=== PATIENT | female | born 1985 | race American Indian/Alaskan Native ===

== ENCOUNTER 2016-10-17 18:58 | Emergency (ER) | payer MEDICARE, OTHER ==
[2016-10-17 19:32] VITALS: BMI 33.9
[2016-10-17 19:35] VITALS: TEMP 98.8; O2SAT 98
--- NOTE | 2016-10-17 20:18 | ED PDOC ---
Arrival/HPI - General Chief Complaint: Female Genitourinary Time Seen by Provider: 10/17/16 19:40 Historian: Patient - History of Present Illness Narrative History of Present Illness (Text): 10/17/16 20:15 30yr old female presents today with concerns for . pt states that she has always had regular periods and now she is 14 days late on her period. pt is concerned that she is . she denies cp or sob. no abdominal pain. no vaginal bleeding or discharge. pt states last time she was she didnt know because the urine tests were negative. pt states she did a test at home and it was negative. no fever/chills. no other complaints. Past Medical History - Provider Review Nursing Documentation Reviewed: Yes - Travel History Have you recently traveled outside [place] w/in the past 3 mons?: No - Infectious Disease Hx of Infectious Diseases: None - Cardiac Hx Cardiac Disorders: No - Pulmonary Hx Respiratory Disorders: No - Neurological Hx Neurological Disorder: No - HEENT Hx HEENT Disorder: No - Renal Hx Renal Disorder: No - Endocrine/Metabolic Hx Endocrine Disorders: No - Hematological/Oncological Hx Blood Disorders: No - Integumentary Hx Dermatological Disorder: No - Musculoskeletal/Rheumatological Hx Musculoskeletal Disorders: No - Gastrointestinal Hx Gastrointestinal Disorders: No - Genitourinary/Gynecological Hx Genitourinary Disorders: No - Psychiatric Hx Psychophysiologic Disorder: Yes Hx Bipolar Disorder: Yes Hx Depression: Yes Hx Substance Use: No - Anesthesia Hx Anesthesia: No Family/Social History - Physician Review Nursing Documentation Reviewed: Yes Family/Social History: Unknown Family HX Smoking Status: Never Smoked Hx Alcohol Use: No Hx Substance Use: No Allergies/Home Meds Allergies/Adverse Reactions: Allergies No Known Allergies Allergy (Verified 06/10/16 14:46) Home Medications: Home Meds Medication Instructions Recorded Confirmed Divalproex [Depakote ER] 1 tab PO DAILY 06/10/16 06/10/16 Trazodone HCl [Trazodone HCl] 50 mg PO PRN PRN 06/10/16 06/10/16 Review of Systems - Review of Systems Constitutional: absent: Fatigue, Fevers Respiratory: absent: SOB, Cough Cardiovascular: absent: Chest Pain, Palpitations Gastrointestinal: absent: Abdominal Pain, Nausea, Vomiting Genitourinary Female: absent: Dysuria, Frequency, Hematuria, Vaginal Bleeding, Vaginal Discharge, Other Musculoskeletal: absent: Arthralgias, Back Pain Skin: absent: Rash, Pruritis Neurological: absent: Headache, Dizziness Physical Exam Vital Signs Reviewed: Yes Vital Signs Temp Pulse Resp BP Pulse Ox 10/17/16 19:35 98.8 F 100 H 18 133/88 98 Temperature: Afebrile Blood Pressure: Normal Pulse: Regular Respiratory Rate: Normal Appearance: Positive for: Well-Appearing, Non-Toxic, Comfortable Pain Distress: None Mental Status: Positive for: Alert and Oriented X 3 - Systems Exam Head: Present: Atraumatic Mouth: Present: Moist Mucous Membranes Neck: Present: Normal Range of Motion Respiratory/Chest: Present: Clear to Auscultation, Good Air Exchange. No: Respiratory Distress, Accessory Muscle Use Cardiovascular: Present: Regular Rate and Rhythm, Normal S1, S2. No: Murmurs Abdomen: No: Tenderness, Distention, Rebound, Guarding Upper Extremity: Present: Normal ROM Lower Extremity: Present: Normal ROM. No: Edema Neurological: Present: GCS=15, Speech Normal Skin: Present: Warm, Dry, Normal Color. No: Rashes Psychiatric: Present: Alert, Oriented x 3 Medical Decision Making ED Course and Treatment: 10/17/16 20:17 30yr old female with negative urine test, 14 days late on her menstrual. patient wants to know if she is will check beta hcg; beta hcg; <2.39 pt without any symptoms. advised f/u with [facility]. advised return if symptoms worsen,persist or if new symptoms develop. Patient verbalizes understanding of discharge instructions and need for immediate followup. all aspects of this case were discussed the attending of record. impression: irregular menstration follow up with the [facility] within the next 2 days Return if symptoms worsen,persist or if new symptoms develop. - Lab Interpretations Lab Results: Lab Results 10/17/16 20:10: Beta HCG, Quant < 2.39 Disposition/Present on Arrival - Present on Arrival Any Indicators Present on Arrival: No History of DVT/PE: No History of Uncontrolled Diabetes: No Urinary Catheter: No History of Decub. Ulcer: No History Surgical Site Infection Following: None - Disposition Have Diagnosis and Disposition been Completed?: Yes Diagnosis: Irregular menses Disposition: HOME/ ROUTINE Disposition Time: 20:18 Patient Plan: Discharge Patient Problems: Current Active Problems Problem Status Diagnosed Irregular menses Acute Condition: GOOD Additional Instructions: follow up with the [facility] within the next 2 days. Return immediately if symptoms worsen or persist or if new concerning symptoms develop. Referrals: Abby Jarrett MD [Staff Provider] - [facility] - Follow up with primary Forms: WORK NOTE
[2016-10-17 21:48] VITALS: BP 130/76; PULSE 90; RESP 16
== END 2016-10-17 21:48 | disposition home or self-care (01) ==
LOC: ED 18:58
DX: N92.6 Irregular menstruation, unspecified (principal)

== ENCOUNTER 2017-03-24 17:04 | Emergency (ER) | payer MEDICARE ==
--- NOTE | 2017-03-24 17:20 | ED PDOC ---
Arrival/HPI - General Time Seen by Provider: 03/24/17 17:19 Historian: Patient - History of Present Illness Narrative History of Present Illness (Text): 03/24/17 17:20 This 31 yo female with pmh bipolar disorder, presents to this ED c/o right lower back pain x 6 weeks. Patient stated pain is intermittent, and radiated to right buttocks. Denies trauma, heavy lifting, dizziness, weakness, paresthesias, GI/ incontinence, saddle anesthesia, urinary retention, urinary symptoms, or abnormal gait. Time/Duration: > month Quality: Aching Context: Home Past Medical History - Provider Review Nursing Documentation Reviewed: Yes - Infectious Disease Hx of Infectious Diseases: None - Cardiac Hx Cardiac Disorders: No - Pulmonary Hx Respiratory Disorders: No - Neurological Hx Neurological Disorder: No - HEENT Hx HEENT Disorder: No - Renal Hx Renal Disorder: No - Endocrine/Metabolic Hx Endocrine Disorders: No - Hematological/Oncological Hx Blood Disorders: No - Integumentary Hx Dermatological Disorder: No - Musculoskeletal/Rheumatological Hx Musculoskeletal Disorders: No - Gastrointestinal Hx Gastrointestinal Disorders: No - Genitourinary/Gynecological Hx Genitourinary Disorders: No - Psychiatric Hx Psychophysiologic Disorder: Yes Hx Bipolar Disorder: Yes Hx Depression: Yes Hx Substance Use: No - Anesthesia Hx Anesthesia: No Family/Social History - Physician Review Nursing Documentation Reviewed: Yes Family/Social History: Other (non-contributory) Smoking Status: Never Smoked Hx Alcohol Use: No Hx Substance Use: No Allergies/Home Meds Allergies/Adverse Reactions: Allergies haloperidol [From Haldol] Allergy (Intermediate, Verified 12/30/16 19:17) ANGIOEDEMA Home Medications: Home Meds Medication Instructions Recorded Confirmed Divalproex [Depakote ER] 500 mg PO BID 06/10/16 03/24/17 Aripiprazole [Abilify Maintena] 1 vial IM Q30D 03/24/17 03/24/17 Benztropine [Cogentin] 5 mg PO BID 03/24/17 03/24/17 Review of Systems - Review of Systems Constitutional: Normal. absent: Fatigue, Weight Change, Fevers Eyes: Normal ENT: Normal Respiratory: Normal Cardiovascular: Normal Gastrointestinal: Normal. absent: Abdominal Pain, Nausea, Vomiting Genitourinary Female: Normal. absent: Dysuria, Frequency, Hematuria, Urine Output Changes, Vaginal Bleeding, Vaginal Discharge Musculoskeletal: Back Pain. absent: Neck Pain, Joint Swelling, Myalgias Skin: Normal. absent: Rash Neurological: Normal. absent: Headache, Focal Weakness, Gait Changes, Speech Changes, Facial Droop, Disequilibrium, Seizure Endocrine: Normal Hemo/Lymphatic: Normal Psychiatric: Normal Physical Exam Vital Signs Temp Pulse Resp BP Pulse Ox 03/24/17 17:21 98.2 F 97 H 18 134/75 96 Temperature: Afebrile Blood Pressure: Normal Pulse: Regular Respiratory Rate: Normal Appearance: Positive for: Well-Appearing, Non-Toxic, Comfortable Pain Distress: None Mental Status: Positive for: Alert and Oriented X 3 - Systems Exam Head: Present: Atraumatic, Normocephalic Pupils: Present: PERRL Extroacular Muscles: Present: EOMI Conjunctiva: Present: Normal Mouth: Present: Moist Mucous Membranes Neck: Present: Normal Range of Motion Respiratory/Chest: Present: Clear to Auscultation, Good Air Exchange. No: Respiratory Distress, Accessory Muscle Use Cardiovascular: Present: Regular Rate and Rhythm, Normal S1, S2. No: Murmurs Abdomen: Present: Normal Bowel Sounds. No: Tenderness, Distention, Peritoneal Signs, Rebound, Guarding Back: Present: Normal Inspection, Paraspinal Tenderness (Mild right paravertebral tenderness. no vertebral point tenderness. No vertebral step off. No skin rash on affected area). No: CVA Tenderness, Midline Tenderness, Pain with Leg Raise Upper Extremity: Present: Normal Inspection, Normal ROM, NORMAL PULSES, Neurovascularly Intact, Capillary Refill < 2s. No: Cyanosis, Edema Lower Extremity: Present: Normal Inspection, NORMAL PULSES, Normal ROM. No: Edema, CALF TENDERNESS Neurological: Present: GCS=15, CN II-XII Intact, Speech Normal, Motor Func Grossly Intact, Normal Sensory Function, Normal Cerebellar Funct, Gait Normal, Memory Normal Skin: Present: Warm, Dry, Normal Color. No: Rashes Psychiatric: Present: Alert, Oriented x 3, Normal Insight, Normal Concentration Medical Decision Making ED Course and Treatment: 03/24/17 19:27 Re-evaluation. Patient feels better. Discussed results and plan with patient who expresses understanding. All questions answered and there is agreement with the plan to discharge home with instructions. Patient stable for discharge. Return if symptoms persist or worsen. Re-evaluation Time: 19:27 Reassessment Condition: Re-examined, Improved - Lab Interpretations Lab Results: Lab Results 03/24/17 17:52: Urine Color Yellow, Urine Appearance Clear, Urine pH 6.0, Ur Specific [place] 1.010, Urine Protein Negative, Urine Glucose (UA) Negative, Urine Ketones Negative, Urine Blood Negative, Urine Nitrate Negative, Urine Bilirubin Negative, Urine Urobilinogen 0.2, Ur Leukocyte Esterase Negative, Urine HCG, Qual Negative - RAD Interpretation Narrative RAD Interpretations (Text): 03/24/17 19:28 LS x-rays: No Fx or sublux. Radiology Orders: 03/24/17 17:36 LS SPINE WITH OBL > 18 YRS OLD [RAD] Stat - Medication Orders Current Medication Orders: Discontinued Medications Ketorolac Tromethamine (Toradol) 30 mg IM STAT STA Stop: 03/24/17 17:37 Last Admin: 03/24/17 17:45 Dose: 30 mg MAR Pain Assessment Document 03/24/17 17:45 OCS (Rec: 03/24/17 17:46 OCS [id number]) Pain Reassessment Is this a pain reassessment? Yes Sleep Is patient sleeping during reassessment? No Presence of Pain Presence of Pain Yes Pain Scale Used Pain Scale Used Numeric Location Upper or Lower Lower Pain Location Body Site Back IM Administration Charges Document 03/24/17 17:45 OCS (Rec: 03/24/17 17:46 OCS [id number]) Injection Site MAR Injection Site Left Deltoid Charges for Administration # of IM Administrations 1 Disposition/Present on Arrival - Present on Arrival Any Indicators Present on Arrival: No History of DVT/PE: No History of Uncontrolled Diabetes: No Urinary Catheter: No History Surgical Site Infection Following: None - Disposition Have Diagnosis and Disposition been Completed?: Yes Diagnosis: Back pain Disposition: HOME/ ROUTINE Disposition Time: 19:29 Patient Plan: Discharge Condition: GOOD Discharge Instructions (ExitCare): Back Pain (ED) Additional Instructions: Call private doctor for follow up visit in 1-2 days. Take medication as instructed . Return to emergency if symptoms worsen. Prescriptions: Cyclobenzaprine [Cyclobenzaprine HCl] 10 mg PO DAILY #6 tab Naproxen 500 mg PO BID PRN #14 tab PRN Reason: Pain, Severe (8-10) Referrals: Jeannie Cavazos MD [Primary Care Provider] - Follow up with primary
[2017-03-24 17:23] VITALS: TEMP 98.2; BMI 44.6
[2017-03-24 18:01] LABS: URINE BILIRUBIN NEGATIVE (NEGATIVE); URINE BLOOD NEGATIVE (NEGATIVE); URINE GLUCOSE (UA) NEGATIVE (NEGATIVE); URINE KETONE NEGATIVE (NEGATIVE); URINE LEUKOCYTE ESTERASE NEGATIVE Leu/uL (NEGATIVE); URINE PROTEIN NEGATIVE mg/dL (<30 mg/dL); URINE UROBILINOGEN 0.2 E.U./dL (<1 E.U./dL)
[2017-03-24 18:02] LABS: URINE APPEARANCE CLEAR (CLEAR); URINE COLOR YELLOW (YELLOW)
[2017-03-24 19:58] VITALS: BP 127/70; PULSE 89; RESP 19; O2SAT 98
--- NOTE | 2017-03-25 08:20 | RAD ---
PROCEDURE: Radiographs of the Lumbar Spine. HISTORY: pain COMPARISON: No prior. FINDINGS: BONES: Normal alignment. No listhesis. No fracture. DISC SPACES: Unremarkable. OTHER FINDINGS: None. IMPRESSION: No significant or acute findings to account for/ related to the clinical presentation. Concordant results with the preliminary interpretation rendered by the emergency department physician procedure.
== END 2017-03-24 19:40 | disposition home or self-care (01) ==
LOC: ED 17:04
DX: M54.9 Dorsalgia, unspecified (principal)
CPT/HCPCS: 72110; 81003; 81025; 84703; 96372; 99283; J1885

== ENCOUNTER 2017-08-18 07:44 | Emergency (ER) | payer MEDICARE ==
[2017-08-18 07:44] VITALS: BMI 44.6
[2017-08-18 08:16] VITALS: RESP 20; TEMP 99.5
--- NOTE | 2017-08-18 08:43 | ED PDOC ---
Arrival/HPI - General Chief Complaint: Chest Pain Time Seen by Provider: 08/18/17 08:36 Historian: Patient - History of Present Illness Narrative History of Present Illness (Text): 08/18/17 08:30 Rose Garrido is a 31 year old female, whose past medical history includes bipolar disorder, who presents to the emergency department complaining of breast aching since one day ago. Patient reports she decided to take a home test which came out positive. Patient also complaints of loss of appetite. Patient denies shortness of breath, abdominal pain, vomiting, dysuria , or other complaints. Time/Duration: 24 hours Symptom Onset: Sudden Symptom Course: Unchanged Quality: Aching Context: Home Past Medical History - Provider Review Nursing Documentation Reviewed: Yes - Infectious Disease Hx of Infectious Diseases: None - Cardiac Hx Cardiac Disorders: No - Pulmonary Hx Respiratory Disorders: No - Neurological Hx Neurological Disorder: No - HEENT Hx HEENT Disorder: No - Renal Hx Renal Disorder: No - Endocrine/Metabolic Hx Endocrine Disorders: No - Hematological/Oncological Hx Blood Disorders: No - Integumentary Hx Dermatological Disorder: No - Musculoskeletal/Rheumatological Hx Musculoskeletal Disorders: No - Gastrointestinal Hx Gastrointestinal Disorders: No - Genitourinary/Gynecological Hx Genitourinary Disorders: No - Psychiatric Hx Psychophysiologic Disorder: Yes Hx Bipolar Disorder: Yes Hx Depression: Yes Hx Substance Use: No - Anesthesia Hx Anesthesia: No Family/Social History - Physician Review Nursing Documentation Reviewed: Yes Family/Social History: Unknown Family HX Smoking Status: Never Smoked Hx Alcohol Use: No Hx Substance Use: No Allergies/Home Meds Allergies/Adverse Reactions: Allergies haloperidol [From Haldol] Allergy (Intermediate, Verified 08/18/17 07:53) ANGIOEDEMA Home Medications: Home Meds Medication Instructions Recorded Confirmed No Known Home Med 08/18/17 08/18/17 Review of Systems - Physician Review All systems were reviewed & negative as marked: Yes - Review of Systems Respiratory: absent: SOB Cardiovascular: Other (breast aching pain). absent: Chest Pain Gastrointestinal: Appetite Changes (loss of appetite). absent: Abdominal Pain Physical Exam Vital Signs Reviewed: Yes Vital Signs Temp Pulse Resp BP Pulse Ox 08/18/17 08:15 99.5 F 102 H 20 133/76 97 Temperature: Afebrile Blood Pressure: Normal Pulse: Tachycardic Respiratory Rate: Normal Appearance: Positive for: Well-Appearing, Non-Toxic, Comfortable Pain Distress: None Mental Status: Positive for: Alert and Oriented X 3 - Systems Exam Head: Present: Atraumatic, Normocephalic Pupils: Present: PERRL Extroacular Muscles: Present: EOMI Conjunctiva: Present: Normal Respiratory/Chest: Present: Clear to Auscultation, Good Air Exchange. No: Respiratory Distress, Accessory Muscle Use, Wheezes, Rales, Retracting, Rhonchi Cardiovascular: Present: Tachycardic. No: Regular Rate and Rhythm, Murmurs, Normal S1, S2 Abdomen: Present: Normal Bowel Sounds. No: Tenderness, Distention, Peritoneal Signs, Rebound, Guarding Breast/Axillary: Present: Other (breast exam deferred) Lower Extremity: Present: Normal Inspection. No: Edema Neurological: Present: GCS=15, CN II-XII Intact, Speech Normal Skin: Present: Warm, Dry, Normal Color. No: Rashes Psychiatric: Present: Alert, Oriented x 3, Normal Insight, Normal Concentration Medical Decision Making ED Course and Treatment: 08/18/17 Impression: 31 year old female with unremarkable physical exam complaining of breast pain and loss of appetite for one day. States home exam is positive. Plan: -- EKG -- Labs -- Urinalysis -- Reassess and disposition Progress Notes: EKG: Ordered, reviewed, and independently interpreted the EKG. Rate : 102 BPM Rhythm : tachycardia Interpretation : Non-specific ST-segment elevations or depressions, no T-wave inversions, normal intervals. 08/18/17 12:06 Ultrasound: Creator : Tico Mays MD FINDINGS: UTERUS:Measures 11.0 x 5.7 x 8.0 cm cm. Uterus appears anteverted without discrete myometrial lesion appreciable throughout. ENDOMETRIUM:Measures 22.0 mm in diameter. No defined intrauterine gestation is identified within the endometrial cavity and instead, there is gross thickening of the endometrium. This pattern is nonspecific but could reflect demise with retained products of conception, particularly LMP is incorrect. Prior LMP suggests an estimated gestational age of 4 weeks 3 days. Hemorrhage within the endometrial cavity is a possibility an even endometriosis. Continued clinical and sonographic follow-up are advised. CERVIX:No cervical abnormality identified. RIGHT OVARY:Measures 2.9 x 2.1 x 2.0 cm. No solid mass. Normal flow. LEFT OVARY:Measures 5.6 x 4.1 x 3.2 cm. No solid mass. Normal flow. A cyst measuring 2.8 x 3.3 x 2.2 cm is identified in the medial left ovarian segment with some on a regular soft tissue related to the anterior wall. This soft tissue is avascular on color per ultrasound. An ectopic gestation is not favored but is not completely excluded either. An adjacent simple cyst measures 2.8 x3.3 x 2.2 cm. FREE FLUID:No significant free fluid noted. OTHER FINDINGS:None. IMPRESSION: 1. No intrauterine gestation is identified at this time. Prominent endometrium is appreciated at 22.0 mm which is grossly thickened. A broad differential diagnosis exists given this pattern including potential demise with retained products of conception. There is no prior comparison available at this time. Other etiologies may include endometrial hemorrhage or mass including endometriosis. 2. A complex cyst at the left ovary is appreciated. No definitive pole is identified to suggest an ectopic though this difficult to completely exclude excluded and further clinical correlation is advised. Please see discussion above. Unremarkable right adnexal compartment. - Lab Interpretations Lab Results: 08/18/17 12:19 08/18/17 08:38 Lab Results 08/18/17 12:19: WBC 8.8, RBC 5.15, Hgb 12.7, Hct 35.7 L, MCV 69.3 L, MCH 24.7 L , MCHC 35.6, RDW 15.5 H, Plt Count 327, MPV 10.3, Gran % 61.9, Lymph % (Auto) 30.0, [place] % (Auto) 7.1 H, Eos % (Auto) 0.8 L, Baso % (Auto) 0.2, Gran # 5.45, Lymph # (Auto) 2.7, [place] # (Auto) 0.6, Eos # (Auto) 0.1, Baso # (Auto) 0.02 08/18/17 11:04: Beta HCG, Quant 311.17 H 08/18/17 08:38: Sodium 139, Potassium 4.0, Chloride 104, Carbon Dioxide 23, Anion Gap 16, BUN 10, Creatinine 0.8, Est GFR ( Amer) > 60, Est GFR (Non- Af Amer) > 60, Random Glucose 106, Calcium 9.8, Total Bilirubin 0.5, AST 49 H, ALT 43, Alkaline Phosphatase 58, Total Protein 7.8, Albumin 4.2, Globulin 3.7, Albumin/Globulin Ratio 1.1 08/18/17 08:38: Urine Color Light yellow, Urine Appearance Clear, Urine pH 7.0, Ur Specific [place] <= 1.005, Urine Protein Negative, Urine Glucose (UA) Negative, Urine Ketones Negative, Urine Blood Negative, Urine Nitrate Negative, Urine Bilirubin Negative, Urine Urobilinogen 0.2, Ur Leukocyte Esterase Negative I have reviewed the lab results: Yes - RAD Interpretation Radiology Orders: 08/18/17 08:36 OB TRANSVAGINAL [US] Stat [employer]: Radiologist - EKG Interpretation Interpreted by ED Physician: Yes Type: 12 lead EKG Comparison: Com.w/previous EKG (01/28/2016) - PA / COMPRESSOR MECHANIC / Resident Statement MD/DO has reviewed & agrees with the documentation as recorded. - Scribe Statement The provider has reviewed the documentation as recorded by the Scribe Rosario Mackay Provider Scribe Attestation: All medical record entries made by the Scribe were at my direction and personally dictated by me. I have reviewed the chart and agree that the record accurately reflects my personal performance of the history, physical exam, medical decision making, and the department course for this patient. I have also personally directed, reviewed, and agree with the discharge instructions and disposition. Disposition/Present on Arrival - Present on Arrival Any Indicators Present on Arrival: No History of DVT/PE: No History of Uncontrolled Diabetes: No Urinary Catheter: No History of Decub. Ulcer: No History Surgical Site Infection Following: None - Disposition Have Diagnosis and Disposition been Completed?: Yes Diagnosis: Disposition: HOME/ ROUTINE Disposition Time: 12:53 Patient Plan: Discharge Condition: GOOD Discharge Instructions (ExitCare): Medications and , - The First Month, - The Second Month, - The Third Month Additional Instructions: [place] - This is a very early . (not even a week) Please take the ultrasound report with you and let your OB doctor know that your Beta HCG level was 311 today. Star- Dr. Shahid Walter Referrals: PCP,NO [Primary Care Provider] - Follow up with primary Forms: [employer] ([place])
[2017-08-18 08:58] LABS: URINE APPEARANCE CLEAR (CLEAR); URINE BILIRUBIN NEGATIVE (NEGATIVE); URINE BLOOD NEGATIVE (NEGATIVE); URINE COLOR LIGHT YELLOW (YELLOW); URINE GLUCOSE (UA) NEGATIVE (NEGATIVE); URINE LEUKOCYTE ESTERASE NEGATIVE Leu/uL (NEGATIVE); URINE NITRATE NEGATIVE (NEGATIVE); URINE PROTEIN NEGATIVE mg/dL (<30 mg/dL); URINE UROBILINOGEN 0.2 E.U./dL (<1 E.U./dL)
[2017-08-18 09:07] LABS: ALB/GLOB RATIO 1.1 (1.1-1.8); ALBUMIN 4.2 g/dL (3.0-4.8); ALT/SGPT 43 U/L (7-56); AST/SGOT 49 U/L (14-36); BLOOD UREA NITROGEN 10 mg/dL (7-21); CALCIUM 9.8 mg/dL (8.4-10.5); GFR AFRICAN-AMERICAN > 60; GFR NON-AFRICAN AMERICAN > 60
--- NOTE | 2017-08-18 12:03 | US ---
HISTORY: viability COMPARISON: None available. The patient's last menstrual period is reported 07/18/2017. TECHNIQUE: Transvaginal obstetric ultrasound was performed in sagittal and transverse projections. FINDINGS: UTERUS: Measures 11.0 x 5.7 x 8.0 cm cm. Uterus appears anteverted without discrete myometrial lesion appreciable throughout. ENDOMETRIUM: Measures 22.0 mm in diameter. No defined intrauterine gestation is identified within the endometrial cavity and instead, there is gross thickening of the endometrium. This pattern is nonspecific but could reflect demise with retained products of conception, particularly LMP is incorrect. Prior LMP suggests an estimated gestational age of 4 weeks 3 days. Hemorrhage within the endometrial cavity is a possibility an even endometriosis. Continued clinical and sonographic follow-up are advised. CERVIX: No cervical abnormality identified. RIGHT OVARY: Measures 2.9 x 2.1 x 2.0 cm. No solid mass. Normal flow. LEFT OVARY: Measures 5.6 x 4.1 x 3.2 cm. No solid mass. Normal flow. A cyst measuring 2.8 x 3.3 x 2.2 cm is identified in the medial left ovarian segment with some on a regular soft tissue related to the anterior wall. This soft tissue is avascular on color per ultrasound. An ectopic gestation is not favored but is not completely excluded either. An adjacent simple cyst measures 2.8 x3.3 x 2.2 cm. FREE FLUID: No significant free fluid noted. OTHER FINDINGS: None. IMPRESSION: 1. No intrauterine gestation is identified at this time. Prominent endometrium is appreciated at 22.0 mm which is grossly thickened. A broad differential diagnosis exists given this pattern including potential demise with retained products of conception. There is no prior comparison available at this time. Other etiologies may include endometrial hemorrhage or mass including endometriosis. 2. A complex cyst at the left ovary is appreciated. No definitive pole is identified to suggest an ectopic though this difficult to completely exclude excluded and further clinical correlation is advised. Please see discussion above. Unremarkable right adnexal compartment. Discussed with Dr. Walter, 08/18/2017 11:54 a.m. with written down and read back verification.
[2017-08-18 12:21] LABS: BASO # 0.02 K/mm3 (0.0-2.0); BASO % 0.2 % (0.0-3.0); EOS # 0.1 (0.0-0.7); EOS % 0.8 % (1.5-5.0); GRAN # 5.45 (1.4-6.5); GRAN % 61.9 % (50.0-68.0); HEMOGLOBIN 12.7 g/dL (12.0-16.0); LYMPH # 2.7 (1.2-3.4); MEAN CELL VOLUME 69.3 fl (80.0-105.0); MEAN CORPUSCULAR HEMOGLOBIN 24.7 pg (25.0-35.0); MEAN CORPUSCULAR HGB CONC 35.6 g/dl (31.0-37.0); MEAN PLATELET VOLUME 10.3 fl (7.0-11.0); MONO # 0.6 (0.1-0.6); MONO % 7.1 % (1.0-6.0); RBC 5.15 10^6/uL (3.5-6.1); RED CELL DISTRIBUTION WIDTH 15.5 % (11.5-14.5); WHITE BLOOD COUNT 8.8 10^3/ul (4.5-11.0)
[2017-08-18 15:24] VITALS: BP 130/72; PULSE 88; O2SAT 98
--- NOTE | 2017-08-18 18:59 | CARD ---
APPROVED REPORT EKG Measurement Heart [id number] <Conclusion> Sinus tachycardia RSR' or QR pattern in V1 suggests right ventricular conduction delay Voltage criteria for left ventricular hypertrophy Nonspecific T wave abnormality Abnormal ECG
== END 2017-08-18 13:05 | disposition home or self-care (01) ==
LOC: ED 07:44
DX: O26.90 Pregnancy related conditions, unspecified, unspecified trimester (principal); Z3A.00 Weeks of gestation of pregnancy not specified

== ENCOUNTER 2017-09-29 10:38 | Emergency (ER) | payer MEDICARE, OTHER ==
[2017-09-29 10:40] VITALS: BMI 44.6
[2017-09-29 11:01] VITALS: TEMP 98.5; O2SAT 100
[2017-09-29 11:16] VITALS: RESP 18
--- NOTE | 2017-09-29 11:50 | ED PDOC ---
Arrival/HPI - General Chief Complaint: Trauma Time Seen by Provider: 09/29/17 11:14 Historian: Patient - History of Present Illness Narrative History of Present Illness (Text): 09/29/17 11:39 A 31 year old female, currently 10 weeks due date 04/26/18, presents to the emergency department complaining of vaginal bleeding for 40 minutes. Patient reports this morning she slipped in the bathtub and injured her back. Patient notes she began to experience vaginal bleeding shortly after. Patient notes morning sickness and a fever last night. Patient denies any other injuries, head trauma, headache, dizziness, neck pain, vomiting, abdominal pain , chest pain, shortness of breath or any other complaints. Patient had an appointment with obgyn yesterday which was canceled. She notes an abnormal pap smear on 09/08/17 but has not discussed results with obgyn yet. 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) Symptom Course: Unchanged Context: Home, Slipped Past Medical History - Provider Review Nursing Documentation Reviewed: Yes - Infectious Disease Hx of Infectious Diseases: None - Cardiac Hx Cardiac Disorders: No - Pulmonary Hx Respiratory Disorders: No - Neurological Hx Neurological Disorder: No - HEENT Hx HEENT Disorder: No - Renal Hx Renal Disorder: No - Endocrine/Metabolic Hx Endocrine Disorders: No - Hematological/Oncological Hx Blood Disorders: No - Integumentary Hx Dermatological Disorder: No - Musculoskeletal/Rheumatological Hx Musculoskeletal Disorders: No - Gastrointestinal Hx Gastrointestinal Disorders: No - Genitourinary/Gynecological Hx Genitourinary Disorders: No - Psychiatric Hx Psychophysiologic Disorder: Yes Hx Bipolar Disorder: Yes Hx Depression: Yes Hx Substance Use: No - Surgical History Hx Section: Yes - Anesthesia Hx Anesthesia: No Family/Social History - Physician Review Nursing Documentation Reviewed: Yes Family/Social History: No Known Family HX Smoking Status: Never Smoked Hx Alcohol Use: No Hx Substance Use: No Allergies/Home Meds Allergies/Adverse Reactions: Allergies haloperidol [From Haldol] Allergy (Intermediate, Verified 09/29/17 10:51) ANGIOEDEMA Home Medications: Home Meds Medication Instructions Recorded Confirmed Lurasidone HCl [Latuda] 20 mg PO DAILY 09/29/17 09/29/17 Review of Systems - Physician Review All systems were reviewed & negative as marked: Yes - Review of Systems Constitutional: absent: Fevers, Night Sweats Respiratory: absent: SOB Cardiovascular: absent: Chest Pain Gastrointestinal: Nausea. absent: Abdominal Pain, Vomiting Genitourinary Female: Vaginal Bleeding Musculoskeletal: Back Pain. absent: Neck Pain Neurological: absent: Headache, Dizziness Physical Exam Vital Signs Reviewed: Yes Vital Signs Temp Pulse Resp BP Pulse Ox 09/29/17 13:48 79 18 125/69 100 09/29/17 12:05 86 18 127/76 100 09/29/17 11:15 98.5 F 95 H 18 129/80 100 09/29/17 10:52 98.5 F 95 H 16 129/80 100 Temperature: Afebrile Blood Pressure: Normal Pulse: Tachycardic Respiratory Rate: Normal Appearance: Positive for: Well-Appearing, Non-Toxic, Comfortable Pain Distress: None Mental Status: Positive for: Alert and Oriented X 3 - Systems Exam Head: Present: Atraumatic, Normocephalic Pupils: Present: PERRL Extroacular Muscles: Present: EOMI Conjunctiva: Present: Normal Mouth: Present: Moist Mucous Membranes Neck: Present: Normal Range of Motion Respiratory/Chest: Present: Clear to Auscultation, Good Air Exchange. No: Respiratory Distress, Accessory Muscle Use Cardiovascular: Present: Regular Rate and Rhythm, Normal S1, S2. No: Murmurs Abdomen: No: Tenderness, Distention, Peritoneal Signs Back: Present: Normal Inspection Upper Extremity: Present: Normal Inspection. No: Cyanosis, Edema Lower Extremity: Present: Normal Inspection. No: Edema Neurological: Present: GCS=15, CN II-XII Intact, Speech Normal Skin: Present: Warm, Dry, Normal Color. No: Rashes Psychiatric: Present: Alert, Oriented x 3, Normal Insight, Normal Concentration Medical Decision Making ED Course and Treatment: 09/29/17 11:39 Impression: A 31 year old female 10 weeks with vaginal bleeding. Patient notes back pain. Plan: -- Transvaginal ultrasound -- Labs -- Urinalysis -- Reassess and disposition Progress Notes: Report Date : 09/29/2017 12:44:20 PROCEDURE: OB Pelvic Ultrasound transvaginal technique Dictator : Tasha Adair IMPRESSION: Single intrauterine gestation with cardiac activity whose menstrual age by ultrasound parameters is 10 weeks 4 days 0 weeks 5 days gestation. Clinical dates are 10 weeks 3 days. Small subchorionic hemorrhagic remnant - - measuring up to 1.3 cm. -chronicity unknown. Anterior upper uterine segment intramural fibroid. Left ovarian cyst -the corpus luteal cyst is compatible with this - Lab Interpretations Lab Results: 09/29/17 11:48 09/29/17 11:48 Lab Results 09/29/17 11:48: Beta HCG, Quant [id number] H 09/29/17 11:48: Blood Type B POSITIVE, Antibody Screen Negative, BBK History Checked No verified bt 09/29/17 11:48: Sodium 137, Potassium 4.0, Chloride 104, Carbon Dioxide 24, Anion Gap 14, BUN 8, Creatinine 0.7, Est GFR ( Amer) > 60, Est GFR (Non- Af Amer) > 60, Random Glucose 91, Calcium 9.6, Total Bilirubin 0.1 L, AST 22, ALT 30, Alkaline Phosphatase 52, Total Protein 7.6, Albumin 4.1, Globulin 3.5, Albumin/Globulin Ratio 1.2 09/29/17 11:48: WBC 9.8, RBC 5.21, Hgb 12.9, Hct 35.6 L, MCV 68.3 L, MCH 24.8 L , MCHC 36.2, RDW 15.8 H, Plt Count 345, MPV 9.9, Gran % 66.1, Lymph % (Auto) 26.6, Mcmullen % (Auto) 5.8, Eos % (Auto) 1.2 L, Baso % (Auto) 0.3, Gran # 6.46, Lymph # (Auto) 2.6, Mcmullen # (Auto) 0.6, Eos # (Auto) 0.1, Baso # (Auto) 0.03 09/29/17 11:38: Urine Color Yellow, Urine Appearance Sl cloudy, Urine pH 6.5, Ur Specific [place] 1.015, Urine Protein Negative, Urine Glucose (UA) Negative, Urine Ketones Negative, Urine Blood Negative, Urine Nitrate Negative, Urine Bilirubin Negative, Urine Urobilinogen 1.0 H, Ur Leukocyte Esterase Trace H, Urine RBC Negative, Urine WBC 5 - 10, Ur Epithelial Cells 10 - 12, Urine Bacteria Few I have reviewed the lab results: Yes - RAD Interpretation Radiology Orders: 09/29/17 11:38 OB TRANSVAGINAL [US] Stat - Medication Orders Current Medication Orders: Discontinued Medications Ceftriaxone Sodium (Rocephin 1 Gram Ivpb) 1 gm in 100 mls @ 200 mls/hr IVPB STAT STA PRN Reason: Protocol Stop: 09/29/17 14:35 - Scribe Statement The provider has reviewed the documentation as recorded by the Scribe Nathaly Poole Provider Scribe Attestation: All medical record entries made by the Scribe were at my direction and personally dictated by me. I have reviewed the chart and agree that the record accurately reflects my personal performance of the history, physical exam, medical decision making, and the department course for this patient. I have also personally directed, reviewed, and agree with the discharge instructions and disposition. Disposition/Present on Arrival - Present on Arrival Any Indicators Present on Arrival: No History of DVT/PE: No History of Uncontrolled Diabetes: No Urinary Catheter: No History of Decub. Ulcer: No History Surgical Site Infection Following: None - Disposition Have Diagnosis and Disposition been Completed?: Yes Diagnosis: Disposition: HOME/ ROUTINE Disposition Time: 15:07 Patient Plan: Discharge Condition: GOOD Discharge Instructions (ExitCare): Medications and Additional Instructions: Rose- Robert you are having to go through this. Please take your test results to your OB doctor when you see them on Tuesday or Tuesday. [facility] until then. Return to us if any problems at all. It was a pleasure to care for you today. Star- Dr. Shahid Walter Forms: [employer] ([place]uvian)
[2017-09-29 12:09] LABS: BASO # 0.03 K/mm3 (0.0-2.0); BASO % 0.3 % (0.0-3.0); EOS # 0.1 (0.0-0.7); EOS % 1.2 % (1.5-5.0); GRAN # 6.46 (1.4-6.5); GRAN % 66.1 % (50.0-68.0); HEMOGLOBIN 12.9 g/dL (12.0-16.0); LYMPH # 2.6 (1.2-3.4); LYMPH % 26.6 % (22.0-35.0); MEAN CELL VOLUME 68.3 fl (80.0-105.0); MEAN CORPUSCULAR HEMOGLOBIN 24.8 pg (25.0-35.0); MEAN CORPUSCULAR HGB CONC 36.2 g/dl (31.0-37.0); MEAN PLATELET VOLUME 9.9 fl (7.0-11.0); MONO # 0.6 (0.1-0.6); MONO % 5.8 % (1.0-6.0); RBC 5.21 10^6/uL (3.5-6.1); RED CELL DISTRIBUTION WIDTH 15.8 % (11.5-14.5); WHITE BLOOD COUNT 9.8 10^3/ul (4.5-11.0)
[2017-09-29 12:15] LABS: ALB/GLOB RATIO 1.2 (1.1-1.8); ALBUMIN 4.1 g/dL (3.0-4.8); ALT/SGPT 30 U/L (7-56); AST/SGOT 22 U/L (14-36); BLOOD UREA NITROGEN 8 mg/dL (7-21); CALCIUM 9.6 mg/dL (8.4-10.5); GFR AFRICAN-AMERICAN > 60; GFR NON-AFRICAN AMERICAN > 60
[2017-09-29 12:20] LABS: PH,URINE 6.5 (4.7-8.0); URINE BILIRUBIN NEGATIVE (NEGATIVE); URINE BLOOD NEGATIVE (NEGATIVE); URINE COLOR YELLOW (YELLOW); URINE GLUCOSE (UA) NEGATIVE (NEGATIVE); URINE LEUKOCYTE ESTERASE TRACE Leu/uL (NEGATIVE); URINE PROTEIN NEGATIVE mg/dL (<30 mg/dL)
[2017-09-29 12:27] LABS: URINE RBC NEGATIVE /hpf (0-2)
[2017-09-29 12:28] LABS: URINE APPEARANCE SL CLOUDY (CLEAR); URINE BACTERIA FEW (NEG)
--- NOTE | 2017-09-29 12:59 | US ---
PROCEDURE: OB Pelvic Ultrasound transvaginal technique HISTORY: Viability, Vag Bleed after fall, 10 wks preg LMP: 07/18/2017 COMPARISON: None available. FINDINGS: UTERUS: Gestational sac: Single intrauterine gestation. Heart rate: 163 bpm. age (Ultrasound estimated): 10 weeks 4 days 0 weeks 5 days Thao-gestational hemorrhage: A small sub hemorrhagic remnant chorionic hemorrhagic remnant is possible. Measuring 1.3 x 0.6 x 1.1 cm in size. Date of delivery (Ultrasound estimated) : 04/23/2018 Uterus measures 15.6 x 7.4 by 11.4 cm. Anteverted. Hand anterior uterin Superior segment/fundal slightly right-sided anterior intramural fibroid suggested measuring 2.8 x 3.3 x 3.3 cm. CERVIX: 3.4 cm. Long and closed. No cervical abnormality seen. RIGHT OVARY: Measures 2.7 x 2.5 x 2.9 cm. No mass lesion. Normal flow. LEFT OVARY: Measures 4.4 x 3.3 x 3.2 cm. No solid mass. Normal flow. A 2.4 x 2.0 x 2.2 cm left ovarian cyst is noted. FREE FLUID: None. OTHER FINDINGS: None. IMPRESSION: Single intrauterine gestation with cardiac activity whose menstrual age by ultrasound parameters is 10 weeks 4 days 0 weeks 5 days gestation. Clinical dates are 10 weeks 3 days. Small subchorionic hemorrhagic remnant - - measuring up to 1.3 cm. -chronicity unknown Anterior upper uterine segment intramural fibroid. Left ovarian cyst -the corpus luteal cyst is compatible with this
[2017-09-29] MEDS ORDERED: cefTRIAXone 1 gm 1 GM/100 ML BAG IVPB STA (14:06)
[2017-09-29 15:15] VITALS: BP 123/64; PULSE 75
== END 2017-09-29 15:52 | disposition home or self-care (01) ==
LOC: ED 10:38
DX: O26.91 Pregnancy related conditions, unspecified, first trimester (principal); Z3A.10 10 weeks gestation of pregnancy
CPT/HCPCS: 76817; 80053; 81001; 84702; 85025; 86850; 86900; 87086; 96365; 99285; J0696